=== PATIENT | female | born 1980 | race Caucasian/White ===

== ENCOUNTER 2020-05-28 10:36 | Emergency (ER) | payer OTHER ==
[~2020-05-28] VITALS: Ht 160 cm; Wt 63.6 kg
[2020-05-28 10:41] VITALS: TEMP 98.3
[2020-05-28] MEDS ORDERED: CLARITIN-D 10 M1 T24 PO (10:56)
[2020-05-28 11:38] LABS: BASO # 0.1 (0.0-0.2); BASO % 1.2 % (0.0-2.0); EOS # 0.1 (0.0-0.7); EOS % 2.8 % (0-4.0); GRAN # 2.2 (1.4-6.5); HEMATOCRIT 42.6 % (37.0-47.0); HEMOGLOBIN 14.5 g/dl (12.5-16.0); LYMPH # 1.3 (1.2-3.4); LYMPH % 31.1 % (20.0-51.0); MEAN CELL VOLUME 87 fl (80.0-100.0); MEAN CORPUSCULAR HEMOGLOBIN 30 pg (27.0-31.0); MEAN CORPUSCULAR HGB CONC 34 g/dl (33.0-37.0); MONO # 0.5 (0.1-0.6); MONO % 12.7 % (1.7-9.3); PLATELET COUNT 263 K/mm3 (130-400); REDCELL DISTRIBUTION WIDTH-CV 12.5 % (11.5-14.5)
[2020-05-28 11:47] LABS: ALANINE AMINOTRANSFERASE 14 U/L (4-34); ALBUMIN 4.7 gm/dL (3.5-5.0); ALKALINE PHOSPHATASE 41 U/L (50-136); ANION GAP 10 mmol/L (7-16); AST,SGOT 25 U/L (15-37); BILIRUBIN,TOTAL 2.3 mg/dL (0.0-1.0); BLOOD UREA NITROGEN 10 mg/dL (7-17); CALCIUM 9.9 mg/dL (8.4-10.2); CARBON DIOXIDE 24 mmol/L (22-30); CHLORIDE 103 mmol/L (98-107); CREATININE, serum 0.94 (0.52-1.25); GLUCOSE 101 mg/dL (74-106); POTASSIUM 3.6 mmol/L (3.4-5.0); SODIUM 137 mmol/L (137-145); TOTAL PROTEIN 8.3 gm/dL (6.4-8.2)
[2020-05-28 11:51] LABS: PROTHROMBIN TIME 11.3 SECONDS (9.7-12.8)
[2020-05-28 11:54] LABS: PARTIAL THROMBOPLASTIN TIME 34.7 SECONDS (26.0-37.0)
[2020-05-28 12:01] LABS: TROPONIN-I < 0.012 ng/mL (0.000-0.035)
[2020-05-28 14:44] VITALS: BP 115/70; PULSE 79
== END 2020-05-28 14:44 | disposition home or self-care (01) ==
LOC: COL.ER 10:36
PROVIDERS: Family Medicine
DX: R07.89 Other chest pain (principal)
CPT/HCPCS: J7030